=== PATIENT | female | born 1985 | race Two or more races ===

== ENCOUNTER 2016-11-10 13:09 | Emergency (ER) | payer OTHER ==
[2016-11-10 13:15] VITALS: BP 122/72; PULSE 97; TEMP 98.9; BMI 31.1
--- NOTE | 2016-11-10 14:20 | PDOC ---
History of Present Illness - General Chief Complaint: Cold Symptoms Stated Complaint: CHEST PAIN, COLD SYMPTONS Time Seen by Provider: 11/10/16 13:51 History Source: Patient Exam Limitations: No Limitations - History of Present Illness Initial Comments: CHIEF COMPLAINT: 31 y/o afebrile female with no significant PMH c/o flu like symptoms. HISTORY OF PRESENT ILLNESS: The patient states 2 nights ago she began having fever and chills, along with dry cough, runny nose and body aches. She denies ear ache, sore throat, n/v/d. She has been taking tylenol for fever and mucinex for cough and runny nose. Her significant other started with similar symptoms 2 days before her. She did not have the flu shot this year. Vital signs on arrival are within normal limits. REVIEW OF SYSTEMS: GENERAL/CONSTITUTIONAL: +fever/chills. No weakness. No weight change. +body aches HEAD, EYES, EARS, NOSE AND THROAT: No change in vision. No ear pain or discharge. No sore throat. +runny nose CARDIOVASCULAR: No chest pain or shortness of breath. RESPIRATORY: +dry cough. No wheezing, or hemoptysis. GASTROINTESTINAL: No nausea, vomiting, diarrhea. GENITOURINARY: No dysuria, frequency, or change in urination. MUSCULOSKELETAL: No joint or muscle swelling or pain. No neck or back pain. SKIN: No rash or easy bruising. NEUROLOGIC: No headache, vertigo, loss of consciousness, or loss of sensation. PHYSICAL EXAM: GENERAL: The patient is awake, alert, and fully oriented, in no acute distress. she is non toxic but ill appearing. HEAD: Normal with no signs of trauma. ENT: Pupils equal, round and reactive to light, extraocular movements intact, sclera anicteric, conjunctiva clear. Neck supple. LUNGS: Clear to auscultation bilaterally. Normal excursion. No respiratory distress or use of accessory muscles. CV: RRR, S1/S2, no MRG. Cap refill < 2 sec. ABDOMEN: Soft, non-distended, non-tender even to deep palpation, no hepatomegaly or splenomegaly, no masses. EXTREMITIES: Normal range of motion, no edema. NEUROLOGICAL: Normal speech, normal gait. CN II-XII grossly intact. PSYCH: Normal mood, normal affect. SKIN: Warm, dry, normal turgor, no rashes or lesions noted. Past History - Past Medical History Allergies/Adverse Reactions: Allergies Allergy/AdvReac Type Severity Reaction Status Date / Time No Known Allergies Allergy Verified 11/10/16 13:11 Home Medications: Ambulatory Orders Oseltamivir Phosphate [Tamiflu -] 75 mg PO BID #10 capsule 11/10/16 Other medical history: denies - Surgical History Abdominal Surgery: Yes - Immunization History Immunization Up to Date: Yes (no flu) - Psycho/Social/Smoking Cessation Hx Anxiety: No Suicidal Ideation: No Smoking History: Never smoked Have you smoked in the past 12 months: No Information on smoking cessation initiated: No Hx Alcohol Use: No Drug/Substance Use Hx: No Substance Use Type: None *Physical Exam - Vital Signs Last Vital Signs Temp Pulse Resp BP Pulse Ox 98.9 F 97 H 20 122/72 96 11/10/16 13:12 11/10/16 13:12 11/10/16 13:12 11/10/16 13:12 11/10/16 13:12 Medical Decision Making - Medical Decision Making A/P: 31 y/o female with flu. Plan is as follows: 1. hcg 2. Influenza hcg - negative Influenza A - positive The patient was given PO motrin in the ER Will discharge with rx for tamiflu. Suggeseted she take 650mg of tylenol every 4 hours for fever and 600mg of motrin every 6 hours for body aches. Instructed her to drink lots of fluids and get plenty of rest. Suggested she return to the ER with any worsening or concerning symptoms. The patient verbalizes understanding of all instructions, has no further questions and is awaiting discharge. *DC/Admit/Observation/Transfer Diagnosis at time of Disposition: Influenza A - Discharge Dispostion Disposition: HOME Condition at time of disposition: Good - Prescriptions Prescriptions: Oseltamivir Phosphate [Tamiflu -] 75 mg PO BID #10 capsule - Patient Instructions Printed Discharge Instructions: DI for Influenza -- Adult Additional Instructions: Discharge Instructions: -Take 650mg of Tylenol every 4 hours for fever -Take 600mg of Motrin every 6 hours for body aches -Take Tamiflu as prescribed -Drink lots of fluids and get plenty of rest -Return to the ER with any worsening or concerning symptoms - Post Discharge Activity Work/School Note: Back to Work
[2016-11-10 15:22] LABS: URINE APPEARANCE SLCLOUDY; URINE BILIRUBIN NEGATIVE (NEGATIVE); URINE COLOR YELLOW; URINE GLUCOSE (UA) NEGATIVE (NEGATIVE); URINE KETONE NEGATIVE (NEGATIVE); URINE LEUK ESTERASE NEGATIVE (NEGATIVE); URINE NITRITE NEGATIVE (NEGATIVE); URINE PROTEIN NEGATIVE (NEGATIVE); URINE UROBILINOGEN NEGATIVE E.U./dl (0.2-1.0)
[2016-11-10] MEDS ORDERED: IBUPROFEN 600 MG TABLET (FP) PO ONE (15:23)
[2016-11-10 15:27] LABS: URINE BLOOD 1+ (NEGATIVE)
[2016-11-10 15:29] LABS: URINE BACTERIA FEW /hpf (NONE SEEN); URINE MUCUS RARE; URINE RBC 13 /hpf (0-3); URINE WBC 1 /hpf (3-5)
--- NOTE | 2016-11-16 11:53 | EKG ---
Test Reason : Blood Pressure : / mmHG Vent. Rate : 099 BPM Atrial Rate : 099 BPM P-R Int : 134 ms QRS Dur : 072 ms QT Int : 344 ms P-R-T Axes : 045 047 032 degrees QTc Int : 441 ms NORMAL SINUS RHYTHM POSSIBLE LEFT ATRIAL ENLARGEMENT BORDERLINE ECG NO PREVIOUS ECGS AVAILABLE Confirmed by ANASTASIA ELIZONDO, MARIA ELENA ([id number]) on 11/16/2016 11:53:16 AM Referred By: Confirmed By:MARIA ELENA OCONNOR MD
== END 2016-11-10 15:35 | disposition home or self-care (01) ==
LOC: JERFT 13:09
DX: J09.X2 Influenza due to identified novel influenza A virus with other respiratory manifestations (principal)
CPT/HCPCS: 81003; 81015; 84703; 87086; 87186; 87804; 93005; 93010; 99281-25

== ENCOUNTER 2016-12-10 11:53 | Emergency (ER) | payer OTHER ==
[2016-12-10 12:20] VITALS: TEMP 98; BMI 30.2
[2016-12-10 13:25] LABS: URINE APPEARANCE CLEAR; URINE BILIRUBIN NEGATIVE (NEGATIVE); URINE BLOOD NEGATIVE (NEGATIVE); URINE COLOR LTYELLOW; URINE GLUCOSE (UA) NEGATIVE (NEGATIVE); URINE KETONE NEGATIVE (NEGATIVE); URINE LEUK ESTERASE NEGATIVE (NEGATIVE); URINE NITRITE NEGATIVE (NEGATIVE); URINE PROTEIN NEGATIVE (NEGATIVE); URINE UROBILINOGEN NEGATIVE E.U./dl (0.2-1.0)
--- NOTE | 2016-12-10 13:28 | PDOC ---
History of Present Illness - General Chief Complaint: Vaginal Bleeding Stated Complaint: , BLEEDING (WKS UNKNOWN) Time Seen by Provider: 12/10/16 12:38 - History of Present Illness Initial Comments: 12/10/16 12:57 CHIEF COMPLAINT: pelvic discomfort, vag bleed, positive HISTORY OF PRESENT ILLNESS: 31 yo Fwith no PMH presents to ED with vaginal bleeding x 2 days and pelvic discomfort x 1 week. Patient states she had a positive test 2 days ago, LMP was 10/14. Patient also c/o nausea and two episodes of vomiting two days ago. Patient denies severe vaginal bleeding, states "it's just very little, I just want to make sure everything is ok." Patient denies, fever, chills, diarrhea, changes in urine or defecation. No recent travel or sick contacts. PAST MEDICAL HISTORY: Denies past medical history FAMILY HISTORY: Denies SOCIAL HISTORY: Denies tobacco, alcohol, illicit drug use. SURGICAL HISTORY: Denies ALLERGIES: No known drug allergies REVIEW OF SYSTEMS General/Constitutional: Denies fever or chills. Denies weakness. HEENT: Denies change in vision. Denies ear pain or discharge. Denies sore throat. Cardiovascular: Denies chest pain or shortness of breath. Respiratory: Denies cough, wheezing, or hemoptysis. Gastrointestinal: 2 episodes of vomiting 2 days ago. Denies diarrhea or constipation. Denies rectal bleeding. Genitourinary: Left suprapubic pain, vaginal bleeding. Denies dysuria, frequency, or change in urination. Musculoskeletal: Denies joint or muscle swelling or pain. Denies neck or back pain. Skin and breasts: Denies rash or easy bruising. Neurologic: Denies headache, vertigo, loss of consciousness, or loss of sensation. PHYSICAL EXAM General Appearance: Well-appearing, appropriately dressed. No apparent distress , no intoxication. HEENT: EOMI, PERRLA,. No conjunctival pallor. No photophobia, scleral icterus. Neck: Supple. Trachea midline. No tenderness, rigidity. Respiratory/Chest: Lungs CTAB. Cardiovascular: RRR. S1, S2. Vascular Pulses: Dorsalis-Pedis (R): 2+, Dorsalis-Pedis (L): 2+ Gastrointestinal/Abdominal: Normal bowel sounds. Abdomen soft, non-distended. No tenderness or rebound tenderness. No organomegaly, pulsatile mass, guarding , hernia, hepatomegaly, splenomegaly. Pelvic: External genitalia normal without lesions. Vaginal vault is clear without blood or discharge. Cervix is long and closed. No cervical motion tenderness. Uterus is nontender and normal in size. Mild left adnexal tenderness. Musculoskeletal/Extremities: Normal inspection. FROM of all extremities, normal capillary refill. Pelvis Stable. No CVA tenderness. No tenderness to extremities, pedal edema, swelling, erythema or deformity. Integumentary: Appropriate color, dry, warm. No cyanosis, erythema, jaundice or rash Neurologic: purchase analyst II-XII intact. Fully oriented, alert. Appropriate mood/affect. Motor strength 5/5. No appreciable EOM palsy, facial droop or sensory deficit. 12/10/16 13:32 Past History - Past Medical History Allergies/Adverse Reactions: Allergies Allergy/AdvReac Type Severity Reaction Status Date / Time No Known Allergies Allergy Verified 12/10/16 12:15 Home Medications: Ambulatory Orders NK [No Known Home Medication] 12/10/16 Other medical history: denies - Surgical History Abdominal Surgery: Yes - Reproductive History Is Patient Now?: Yes (#): 2 Para: 1 - Immunization History Immunization Up to Date: Yes (no flu) - Psycho/Social/Smoking Cessation Hx Anxiety: No Suicidal Ideation: No Smoking History: Never smoked Have you smoked in the past 12 months: No Hx Alcohol Use: No Drug/Substance Use Hx: No Substance Use Type: None *Physical Exam - Vital Signs Last Vital Signs Temp Pulse Resp BP Pulse Ox 98.0 F 75 16 123/71 99 12/10/16 12:16 12/10/16 12:16 12/10/16 12:16 12/10/16 12:16 12/10/16 12:16 ED Treatment Course - RADIOLOGY Radiology Studies Ordered: Category Date Time Status TRANSVAGINAL US PREG [US] Stat Ultrasound 12/10/16 12:55 Ordered Medical Decision Making - Medical Decision Making 12/10/16 13:34 31 yo F with no PMH presents to ED with minimal vaginal bleeding x 2 days and 1 week of pelvic discomfort. -UA, UCx -beta hCG, T&S -TV U/S 12/10/16 16:35 Ultrasound results show confirmed IUP with EGA of 5 weeks and 2 days. Ovaries unremarkable beta hCG 7k+ appropriate for EGA. Patient is Rh+, Rhogam not indicated. Advised patient to follow up with OBGYN next week and of signs and symptoms for return to ER. Patient verbalized understanding and agrees to plan. 12/10/16 18:22 *DC/Admit/Observation/Transfer Diagnosis at time of Disposition: Threatened in first trimester - Discharge Dispostion Disposition: HOME Condition at time of disposition: Stable Admit: No - Referrals Referrals: Gautam Hedrick [Primary Care Provider] - Jorge Rand MD [Staff Physician] - - Patient Instructions Printed Discharge Instructions: DI for Threatened Additional Instructions: Please follow up with OBGYN next week. If you experience severe vaginal bleeding (more than one soaked pad per hour), persistent vomiting, severe abdominal pain, or any new or worsening symptoms, please return to the ER.
--- NOTE | 2016-12-10 14:35 | PDOC ---
*Physical Exam - Vital Signs Last Vital Signs Temp Pulse Resp BP Pulse Ox 98.0 F 75 16 123/71 99 12/10/16 12:16 12/10/16 12:16 12/10/16 12:16 12/10/16 12:16 12/10/16 12:16 - Physical Exam Comments: 12/10/16 14:35 The patient was examined by SHANIKA Conde under my direct supervision. I personally evaluated the patient. I concur with the above findings and the plan of care. ED Treatment Course - ADDITIONAL ORDERS Additional order review: Laboratory Results 12/10/16 12/10/16 13:00 13:00 Beta HCG, Quant 7280.3 Urine Color Ltyellow Urine Appearance Clear Urine pH 5.0 Ur Specific [place] 1.023 Urine Protein Negative Urine Glucose (UA) Negative Urine Ketones Negative Urine Blood Negative Urine Nitrite Negative Urine Bilirubin Negative Urine Urobilinogen Negative Ur Leukocyte Esterase Negative *DC/Admit/Observation/Transfer Diagnosis at time of Disposition: Threatened in first trimester - Discharge Dispostion Disposition: HOME Condition at time of disposition: Stable - Referrals Referrals: Jorge Rand MD [Staff Physician] - Gautam Hedrick [Primary Care Provider] - - Patient Instructions Printed Discharge Instructions: DI for Threatened Additional Instructions: Please follow up with OBGYN next week. If you experience severe vaginal bleeding (more than one soaked pad per hour), persistent vomiting, severe abdominal pain, or any new or worsening symptoms, please return to the ER.
[2016-12-10 17:28] VITALS: BP 118/64; PULSE 69
--- NOTE | 2016-12-12 11:28 | PDOC ---
Patient Follow-up (Call Back) - Post ED Follow - Up Condition at time of discharge: Stable Disposition at time of original discharge: HOME Reason for Call Back: Abnwl. Microbiology (+ecoli on ucx, oliver-sensitive including to macrobid. Pt is and not on abx. Called and unable to l/m as number busy on multiple attempts)
== END 2016-12-10 17:29 | disposition home or self-care (01) ==
LOC: JER 11:53
DX: O20.0 Threatened abortion (principal); Z3A.01 Less than 8 weeks gestation of pregnancy
CPT/HCPCS: 36415; 76817-TC; 81003; 84702; 86850; 86900; 86901; 87086; 87186; 99283-25

== ENCOUNTER 2017-07-27 14:17 | Inpatient (IN) | payer OTHER ==
[2017-07-27] MEDS ORDERED: CITRIC ACID/SODIUM CITRATE 30 ML UNIT-DOSE CUP PO ONE ×2 (15:15→16:57)
[2017-07-27] MEDS ORDERED: ELECTROLYTE-148 SOLN 500 ML IV ONE (15:15)
[2017-07-27 15:23] VITALS: BMI 36.6
[2017-07-27] MEDS ORDERED: ELECTROLYTE-148 SOLN 1,000 ML IV SCH (15:45)
[2017-07-27] MEDS ORDERED: IBUPROFEN 800 MG/8 ML IJ IVPB PRN (16:04)
[2017-07-27] MEDS ORDERED: ONDANSETRON 4 MG/2 ML VIAL IVPUSH PRN (16:05)
[2017-07-27] MEDS ORDERED: oxyCODONE HCL 5 MG TABLET PO PRN (16:59)
[2017-07-27] MEDS ORDERED: METHYLERGONOVINE MALEATE 0.2 MG/1 ML AMP IM PRN (16:59)
[2017-07-27] MEDS ORDERED: diphenhydrAMINE HCL 25 MG CAPSULE (FP) PO PRN (16:59)
[2017-07-27] MEDS ORDERED: WITCH HAZEL 50% (TUCKS) 40 PAD/JAR PAD TP PRN (16:59)
[2017-07-27] MEDS ORDERED: BENZOCAINE 28 GM HEMORRHOIDAL OINTMENT PR PRN (16:59)
[2017-07-27] MEDS ORDERED: BENZOCAINE 20% 57 GM BOTTLE TP PRN (16:59)
[2017-07-27] MEDS ORDERED: DEXTROSE 5%-LACTATED RINGERS 1,000 ML IV SCH (17:00)
[2017-07-27] MEDS ORDERED: OXYTOCIN 20 UNITS in 0.9% NS 1,000 ML IV SCH (17:00)
--- NOTE | 2017-07-27 17:07 | HP ---
Past Medical History - Primary Care Physician PCP:: Jorge Rand - Admission Chief Complaint: 39 weeks, previous c/s request of repeat c/s History of Present Illness: 32 yo f edc by date 07/28/17 with 1 previous c/s request of repeat c/s, risks discussed , ulternatives and discussed , declined aware risks of infection, bleeding, injury ,bleeding, post op complications, dvt, risks with future discussed, History Source: Patient Limitations to Obtaining History: No Limitations - Past Medical History ...: 3 ...Para: 1 ...Term: 1 ...: 0 ...Spon : 0 ...Induced : 1 ...Multiple Gestation: 0 ...LMP: 10/21/16 ... Weeks Gestation by Dates: 39.6 ...EDC by Dates: 07/28/17 ...EDC by Sono: 08/03/17 - Past Surgical History Past Surgical History: Yes: Hx Myomectomy: No Hx Transabdominal Cerclage: No - Smoking History Smoking history: Never smoked Have you smoked in the past 12 months: No - Alcohol/Substance Use Hx Alcohol Use: No - Social History Usual Living Arrangement: Yes: With Spouse History of Recent Travel: Yes Home Medications - Allergies Allergies/Adverse Reactions: Allergies Allergy/AdvReac Type Severity Reaction Status Date / Time No Known Allergies Allergy Verified 12/10/16 12:15 - Home Medications Home Medications: Ambulatory Orders NK [No Known Home Medication] 12/10/16 Review of Systems - Review of Systems Constitutional: reports: No Symptoms Eyes: reports: No Symptoms HENT: reports: No Symptoms Neck: reports: No Symptoms Cardiovascular: reports: No Symptoms Respiratory: reports: No Symptoms Gastrointestinal: reports: No Symptoms Genitourinary: reports: No Symptoms Breasts: reports: No Symptoms Reported Musculoskeletal: reports: No Symptoms Integumentary: reports: No Symptoms Neurological: reports: No Symptoms Endocrine: reports: No Symptoms Hematology/Lymphatic: reports: No Symptoms Psychiatric: reports: No Symptoms Physical Exam - Maternity Vital Signs: Vital Signs Temperature 97.8 F 07/27/17 14:17 Pulse Rate 86 07/27/17 14:17 Respiratory Rate 20 07/27/17 14:17 Blood Pressure 116/65 07/27/17 14:17 O2 Sat by Pulse Oximetry (%) Constitutional: Yes: Well Nourished, No Distress, Calm Eyes: Yes: WNL, Conjunctiva Clear, EOM Intact HENT: Yes: WNL, Atraumatic, Normocephalic Neck: Yes: WNL, Supple, Trachea Midline Cardiovascular: Yes: WNL, Regular Rate and Rhythm Breast(s): Yes: WNL - Abdominal Exam/OB Fundal Height: 40 Number of Fetuses: Single Presentation: Vertex Contractions: No Intensity: Unaware Monitor Mode: External Heart Rate Location: [facility] Category: I Accelerations: Uniform Decelerations: None - Vaginal Exam/OB Vaginal Bleediing: No Speculum Exam: No Dilatation (cm): closed Effacement (%): 0 Amniotic Membrane Status: Intact Presentation: Vertex/Position Station: -3 - Physical Exam Musculoskeletal: Yes: WNL Extremities: Yes: WNL Edema: Yes Edema: LLE: Trace, RLE: Trace Deep Tendon Reflex Grade: Normal +2 Psychiatric: Yes: WNL Hemorrhage Risk Assessment - Risk Factors Medium Risk Factors: Yes: Prior , uterine surgery,or multiple laparotomies Risk Score: 1 Risk Level: Medium Risk Problem List - Problems (1) with 39 completed weeks gestation Code(s): Z3A.39 - 39 WEEKS GESTATION OF (2) Previous section complicating , antepartum condition or complication Code(s): O34.219 - MATERNAL CARE FOR UNSP TYPE SCAR FROM PREVIOUS DEL Assessment/Plan repeat c/s rba discussed
[2017-07-27] MEDS ORDERED: CEFAZOLIN 1 GM/D5W 50 ML IVPB SCH (18:00)
[2017-07-27] MEDS: IBUPROFEN 800 MG/8 ML IJ IVPB PRN (18:05)
[2017-07-27] MEDS: CEFAZOLIN 1 GM in DEXTROSE 5%-WATER - 50 ML IVPB SCH (22:15)
--- NOTE | 2017-07-28 04:45 | PN ---
Progress Note (short form) - Note Progress Note: pod 1 s/p repeat c/s doing well, Last Vital Signs Temp Pulse Resp BP Pulse Ox 98.0 F 88 20 106/64 100 07/28/17 02:00 07/28/17 02:00 07/28/17 04:00 07/28/17 02:00 07/27/17 17:50 abdomen soft, no distension, no cva incision dry no excess vaginal bleeding folet clear , adequate out put plan ambualte, cbc. advance diet Problem List - Problems (1) with 39 completed weeks gestation Code(s): Z3A.39 - 39 WEEKS GESTATION OF (2) Previous section complicating , antepartum condition or complication Code(s): O34.219 - MATERNAL CARE FOR UNSP TYPE SCAR FROM PREVIOUS DEL
[2017-07-28] MEDS: IBUPROFEN 800 MG/8 ML IJ IVPB PRN (04:46)
[2017-07-28] MEDS: CEFAZOLIN 1 GM in DEXTROSE 5%-WATER - 50 ML IVPB SCH (06:28)
--- NOTE | 2017-07-28 07:22 | OP ---
DATE OF OPERATION: 07/27/2017 PREOPERATIVE DIAGNOSIS: , 39 weeks. Previous section. Request of repeat section. POSTOPERATIVE DIAGNOSIS: , 39 weeks. Previous section. Request of repeat section. PROCEDURE PERFORMED: Repeat low-segment transverse section. SURGEON: Davida Rand MD SLATE CUTTER OPERATOR: RIAN Puri ANESTHESIA: Spinal. ANESTHESIOLOGIST: Zafar Gunderson M.D. ESTIMATED BLOOD LOSS: 500 mL. DESCRIPTION OF PROCEDURE: The patient was taken to the operating room and had adequate spinal anesthesia. Abdomen and perineum were prepped and draped. A Pfannenstiel abdominal skin incision was made. The abdominal wall was cut layer by layer, until the peritoneum was exposed and incised. Upon entering the abdominal cavity, there were multiple omental and peritoneal adhesions. Also, the large bowel was adherent to the lateral pelvic side wall. These adhesions were meticulously lysed with Metzenbaum scissors. Hemostasis was established. The bowels were packed away. Then the lower uterine segment was identified and uterovesical fold of peritoneum established. The bladder was pushed down. A low transverse uterine incision was made. The amniotic sac was entered. Clear fluid. Head delivered. Nasopharynx was suctioned, and live baby was delivered. The placenta was delivered manually. The uterine cavity was cleaned of all remaining tissue. The uterine incision was closed in 2 layers, the 1st layer with 0 Biosyn continuous suture and the 2nd layer with 0 Biosyn imbricating the 1st layer. The bladder flap was closed with 0 Vicryl continuous suture. Both tubes and ovaries were checked and were normal. No active bleeding was seen. All the lap, sponge and instrument counts were correct. Then the peritoneum was closed with 0 Biosyn continuous suture. The muscles were brought together with interrupted suture of 0 Biosyn. The fascia was closed with 0 Biosyn continuous suture, the subcutaneous fat with interrupted suture of 0 Vicryl, and the skin was closed with millicent. The patient tolerated the procedure well, and left the OR in good condition. DAVIDA RAND M.D. [id number]
[2017-07-28 07:52] LABS: BASOPHIL 1.3 % (0-2.0); EOSINOPHIL 0.5 % (0-4.5); MCH 24.3 pg (25.7-33.7); MCHC 32.7 g/dl (32.0-36.0); MEAN CELL VOLUME 74.2 fl (80-96); MEAN PLT VOLUME 7.9 fl (7.5-11.1); NEUTROPHILS 79.1 % (42.8-82.8); PLATELET COUNT 305 K/MM3 (134-434); RDW 16.5 % (11.6-15.6); WHITE BLOOD COUNT 15.3 K/mm3 (4.0-10.0)
--- NOTE | 2017-07-28 08:09 | PN ---
Progress Note (short form) - Note Progress Note: Anesthesia Pain Pt seen and examined S:alert and oriented comfortable O: Vital Signs Temperature 98.8 F 07/28/17 06:00 Pulse Rate 71 07/28/17 06:00 Respiratory Rate 20 07/28/17 06:00 Blood Pressure 105/56 07/28/17 06:00 O2 Sat by Pulse Oximetry (%) 100 07/27/17 17:50 CBC, BMP 07/28/17 07:46 A/P: s/p c section doing well post op continue current care Robert Pastor MD
[2017-07-28] MEDS: SIMETHICONE 80 MG TAB.CHEW (FP) PO PRN ×3 (09:53→22:43)
[2017-07-28] MEDS: ACETAMINOPHEN 325 MG TABLET (FP) PO PRN ×3 (09:53→22:53)
[2017-07-28] MEDS: ENOXAPARIN NA (PORCINE) 40 MG/0.4 ML DISP.SYRIN SQ SCH (09:54)
[2017-07-28] MEDS: IBUPROFEN 600 MG TABLET (FP) PO PRN ×2 (09:54→17:20)
[2017-07-28] MEDS ORDERED: FLU VACC QS2017-18 36MOS UP/PF 60 MCG/0.5 ML SYRINGE IM ONE (10:00)
[2017-07-28] MEDS ORDERED: DIPHTH,PERTUSS(ACELL),TET 0.5 ML DISP.SYRIN IM ONE (10:00)
[2017-07-28] MEDS: oxyCODONE HCL 5 MG TABLET PO PRN (15:24)
[2017-07-28] MEDS ORDERED: BISACODYL 10 MG SUPP.RECT RC PRN (16:59)
[2017-07-29] MEDS: SIMETHICONE 80 MG TAB.CHEW (FP) PO PRN ×2 (05:48→21:39)
[2017-07-29] MEDS: ACETAMINOPHEN 325 MG TABLET (FP) PO PRN ×2 (05:49→14:52)
[2017-07-29] MEDS: oxyCODONE HCL 5 MG TABLET PO PRN ×2 (05:49→21:39)
[2017-07-29] MEDS: ENOXAPARIN NA (PORCINE) 40 MG/0.4 ML DISP.SYRIN SQ SCH (10:14)
--- NOTE | 2017-07-29 14:35 | PN ---
Post Progress Note - Subjective Subjective: 32 yo P2 s/p Elective repeat c/s ambulating, voiding, + flatus Post Day: 2 Type of Delivery: Repeat C/S Vital Signs: Vital Signs Temperature 98.4 F 07/29/17 10:00 Pulse Rate 75 07/29/17 10:00 Respiratory Rate 20 07/29/17 10:00 Blood Pressure 107/63 07/29/17 10:00 O2 Sat by Pulse Oximetry (%) 100 07/27/17 17:50 Breast Exam: Yes: Soft Uterus: Yes: Fundus Firm, Fundus @ umbilicus Incision: Yes: [place] intact Abdomen/GI: Yes: Abdomen soft, Abdominal Distention, Passing flatus, Tolerating PO Lochia: Yes: Rubra Lochia, amount: Small Extremities: Yes: Calves non-tender Activity: Ambulating - Labs Labs: CBC WBC 15.3 K/mm3 (4.0-10.0) H 07/28/17 07:46 RBC 4.30 M/mm3 (3.60-5.2) 07/28/17 07:46 Hgb 10.4 GM/dL (10.7-15.3) L 07/28/17 07:46 Hct 31.9 % (32.4-45.2) L 07/28/17 07:46 MCV 74.2 fl (80-96) L 07/28/17 07:46 MCH 24.3 pg (25.7-33.7) L 07/28/17 07:46 MCHC 32.7 g/dl (32.0-36.0) 07/28/17 07:46 RDW 16.5 % (11.6-15.6) H 07/28/17 07:46 Plt Count 305 K/MM3 (134-434) 07/28/17 07:46 MPV 7.9 fl (7.5-11.1) 07/28/17 07:46 Neutrophils % 79.1 % (42.8-82.8) 07/28/17 07:46 Lymphocytes % 13.7 % (8-40) D 07/28/17 07:46 Monocytes % 5.4 % (3.8-10.2) 07/28/17 07:46 Eosinophils % 0.5 % (0-4.5) 07/28/17 07:46 Basophils % 1.3 % (0-2.0) 07/28/17 07:46 Assessment/Plan 32 yo P2 s/p repeat c/s 1. Continue routine postoperative care. 2. ID - afebrile, will continue to monitor vital signs. 3. Cardiovascular - No acute issues 4. Pulmonary - Encourage incentive spirometer 5. Hematology - Hemoglobin / Hematocrit stable 6. Urinary urine output adequate overnight 7. Gastroinestinal mild ileus, encorage ambulation and Dulcolax suppository 8. Rh positive, no need for RhoGam
[2017-07-29] MEDS: IBUPROFEN 600 MG TABLET (FP) PO PRN ×2 (14:52→21:39)
[2017-07-29] MEDS ORDERED: SENNOSIDES/DOCUSATE COMBO (SENNA PLUS) TABLET (UD) PO PRN (22:00)
[2017-07-30 07:16] LABS: BASOPHIL 0.6 % (0-2.0); MCH 24.4 pg (25.7-33.7); MCHC 32.5 g/dl (32.0-36.0); MEAN CELL VOLUME 75.2 fl (80-96); NEUTROPHILS 70.7 % (42.8-82.8); PLATELET COUNT 350 K/MM3 (134-434); RDW 16.5 % (11.6-15.6); WHITE BLOOD COUNT 10.3 K/mm3 (4.0-10.0)
--- NOTE | 2017-07-30 08:14 | PN ---
Post Progress Note - Subjective Subjective: 32 yo P2 s/p Repeat c/s she feels well, +BM, tolarating regular diet, voiding, ambulating Post Day: 3 Type of Delivery: Repeat C/S Vital Signs: Vital Signs Temperature 98.5 F 07/29/17 20:33 Pulse Rate 70 07/29/17 20:33 Respiratory Rate 20 07/29/17 20:33 Blood Pressure 119/71 07/29/17 20:33 O2 Sat by Pulse Oximetry (%) 100 07/27/17 17:50 Breast Exam: Yes: Soft Uterus: Yes: Fundus Firm, Non-tender Incision: Yes: [place] intact Abdomen/GI: Yes: Abdomen soft, Passing flatus Lochia: Yes: Rubra Lochia, amount: Small Extremities: Yes: Calves non-tender - Labs Labs: CBC WBC 10.3 K/mm3 (4.0-10.0) H D 07/30/17 06:25 RBC 4.20 M/mm3 (3.60-5.2) 07/30/17 06:25 Hgb 10.3 GM/dL (10.7-15.3) L 07/30/17 06:25 Hct 31.6 % (32.4-45.2) L 07/30/17 06:25 MCV 75.2 fl (80-96) L 07/30/17 06:25 MCH 24.4 pg (25.7-33.7) L 07/30/17 06:25 MCHC 32.5 g/dl (32.0-36.0) 07/30/17 06:25 RDW 16.5 % (11.6-15.6) H 07/30/17 06:25 Plt Count 350 K/MM3 (134-434) 07/30/17 06:25 MPV 8.0 fl (7.5-11.1) 07/30/17 06:25 Neutrophils % 70.7 % (42.8-82.8) 07/30/17 06:25 Lymphocytes % 19.8 % (8-40) D 07/30/17 06:25 Monocytes % 6.9 % (3.8-10.2) 07/30/17 06:25 Eosinophils % 2.0 % (0-4.5) D 07/30/17 06:25 Basophils % 0.6 % (0-2.0) 07/30/17 06:25 Assessment/Plan 32 yo P2 s/p repeat c/s 1. ID - afebrile,.. 2. Cardiovascular - No acute issues 3. Pulmonary - Encourage incentive spirometer 4. Hematology - Hemoglobin / Hematocrit stable 4. Urinary voiding 5. Gastroinestinal resolved illeus, +BM 6. Rh positive, no need for RhoGam 7. D/c home, NPV for 6 weeks, RTO in 1 week
[2017-07-30] MEDS: SIMETHICONE 80 MG TAB.CHEW (FP) PO PRN (08:48)
[2017-07-30] MEDS: IBUPROFEN 600 MG TABLET (FP) PO PRN (08:48)
[2017-07-30] MEDS: ACETAMINOPHEN 325 MG TABLET (FP) PO PRN (08:49)
[2017-07-30] MEDS: ENOXAPARIN NA (PORCINE) 40 MG/0.4 ML DISP.SYRIN SQ SCH ×2 (08:50→09:08)
--- NOTE | 2017-07-30 12:33 | DS ---
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 Vital Signs: Vital Signs Temperature 98.5 F 07/29/17 20:33 Pulse Rate 70 07/29/17 20:33 Respiratory Rate 20 07/29/17 20:33 Blood Pressure 119/71 07/29/17 20:33 O2 Sat by Pulse Oximetry (%) 100 07/27/17 17:50 Constitutional: Yes: Well Nourished Eyes: Yes: WNL Neck: Yes: WNL, Supple Cardiovascular: Yes: Regular Rate and Rhythm Respiratory: Yes: CTA Bilaterally Gastrointestinal: Yes: Normal Bowel Sounds, Soft, Other ...Rectal Exam: No: WNL Pelvis: Yes: WNL External Genitalia: Yes: Normal ....Post : Yes: Uterus firm, Uterus non-tender Breast(s): Yes: WNL Musculoskeletal: Yes: WNL Extremities: Yes: WNL Wound/Incision: Yes: Clean/Dry, Well Approximated Neurological: Yes: WNL ...Motor Strength: WNL Psychiatric: Yes: WNL Labs: CBC, BMP 07/30/17 06:25 Delivery - Delivery Type of Anesthesia: Spinal Episiotomy/Laceration: None EBL (cc): 500 Delivery, Single - Stages of Labor Date of Delivery: 07/27/17 Time of Delivery: 16:30 Time Placenta Delivered: 16:32 - Condition of Video Control Engineer/Paper Roll Machine Operator Present: Yes Name: Phan Lyle Gender: Female Weight: 7 lb 1 oz Position: Right, OT Total Hours ROM (Hrs/Mins): 4min - 1 Minute Total Score: 9 5 Minutes Total Score: 9 - Feeding Plan Initial Plan: Exclusive throughout hospitalization Discharge Summary Reason For Visit: SCHEDULED SECTION Current Active Problems with 39 completed weeks gestation (Acute) Previous section complicating , antepartum condition or complication (Acute) Condition: Good - Instructions Diet, Activity, Other Instructions: Physical activity Resume your normal everyday activity as tolerated no heavy lifting or exercise until seen by your surgeon. You may walk unlimited shyann of and climb stairs. You may resume driving the car when you feel safe and comfortable behind the wheel. No sexual activity as instructed. Wound care If you have a bandage, leave it on, and keep dry for 48-72 hours. After that time discard the outer bandage. If they are tapes on the skin under the out of bandage leave them in place. They will peel off in the next 7 to 10 days. Do Not Peel them off. You may shower the day after surgery. If there are tapes present on the skin, you may shower over them. Diet There are no dietary restrictions. Eat healthy, high-fiber foods. Drink 6 to 8 glasses of liquid each day. This will assist in keeping your bowels are regular. Pain management You may take Tylenol or acetaminophen or Ibuprofen (for example, Motrin, Advil etc.) from my pain prescription medication is ordered should be taken as prescribed for moderate to severe pain. Call MD for any of the following: Severe pain not relieved by medication Fever of 101 or higher Excessive bleeding or drainage on dressing Inability to urinate Referrals: Jorge Rand MD [Staff Physician] - Disposition: HOME - Home Medications Comprehensive Discharge Medication List: Ambulatory Orders NK [No Known Home Medication] 12/10/16
[2017-07-30 13:38] VITALS: BP 126/64; PULSE 78; TEMP 98.3
--- NOTE | 2017-07-31 11:06 | PATH ---
Surgical Pathology Report Patient Name: ESAU OLVERA [facility]. Rec. 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 Specimen(s) Received PLACENTA Clinical History 39 weeks gestation, scheduled repeat History of positive PPD Final Diagnosis PLACENTA, DELIVERY: THIRD TRIMESTER PLACENTA WITH 3 VESSEL UMBILICAL CORD AND CIRCUMMARGINATE INSERTION OF MEMBRANES. Electronically Signed Kevin Urbano M.D. Gross Description The specimen is received fresh labeled placenta and is a 483 gram, 22 x 15 x 2.4 cm. placenta with attached membranes and umbilical cord. The attached membranes are glistening and translucent and insert in a circummarginate matter across one quarter of the placental disc, up to 1 cm from the nearest placental margin. The umbilical cord measures 38 cm. in length and averages 1.2 cm. in diameter. The cord inserts eccentrically, 3.5 cm. to the nearest margin. No true knots or strictures are identified. Cut surface of the umbilical cord reveals 3 vessels. The surface is hay-blue with minimal fibrin deposition and appropriate caliber vessels. The maternal surface is lobulated and appears complete with no adherent blood clots or areas of thinning. Sectioning reveals red-brown, spongy parenchyma. No lesions are identified. Job Cost Estimator sections are submitted in three cassettes as follows: 1- membrane rolls and umbilical cord; 2-3- full thickness sections of placenta. [facility]/07/28/2017 [facility]/07/28/2017
== END 2017-07-30 15:30 | disposition home or self-care (01) | DRG 540 ==
LOC: JLDR 14:17 → J3N 20:50 → J3W 07-29 17:17
PROVIDERS: ADMIT Obstetrics & Gynecology; ATTEND Obstetrics & Gynecology
PROC: 10D00Z1 Extraction of Products of Conception, Low, Open Approach (ICD-10-PCS; principal; 2017-07-27)
DX: O34.211 Maternal care for low transverse scar from previous cesarean delivery (principal); N85.8 Other specified noninflammatory disorders of uterus; Z3A.39 39 weeks gestation of pregnancy; Z37.0 Single live birth
CPT/HCPCS: 36415; 71020-TC; 85025; 88307-TC; 90686; 90715; G0008

== ENCOUNTER 2019-07-17 11:21 | Emergency (ER) | payer OTHER ==
[2019-07-17 11:31] VITALS: BP 119/70; PULSE 83; TEMP 98.3; BMI 30.2
--- NOTE | 2019-07-17 12:27 | PDOC ---
History of Present Illness - General Chief Complaint: Pain Stated Complaint: RT HAND PAIN Time Seen by Provider: 07/17/19 11:41 - History of Present Illness Initial Comments: 07/17/19 12:22 34 y/o F w/o CM currently breast feeding, presents for evaluation of atraumatic onset of R wrist pain x4 days. No systemic symptoms. Past History - Past Medical History Allergies/Adverse Reactions: Allergies Allergy/AdvReac Type Severity Reaction Status Date / Time No Known Allergies Allergy Verified 07/17/19 11:31 Home Medications: Ambulatory Orders NK [No Known Home Medication] 07/17/19 Asthma: No Cancer: No Cardiac Disorders: No COPD: No Diabetes: No HTN: No Seizures: No Thyroid Disease: No - Surgical History Abdominal Surgery: Yes - Reproductive History (#): 2 Para: 1 - Immunization History Immunization Up to Date: Yes (no flu) - Suicide/Smoking/Psychosocial Hx Smoking History: Never smoked Have you smoked in the past 12 months: No Information on smoking cessation initiated: No Hx Alcohol Use: No Drug/Substance Use Hx: No Substance Use Type: None Hx Substance Use Treatment: No Review of Systems - Review of Systems Constitutional: No: Fever Musculoskeletal: Yes: Joint Pain *Physical Exam - Vital Signs Last Vital Signs Temp Pulse Resp BP Pulse Ox 98.3 F 83 19 119/70 100 07/17/19 11:29 07/17/19 11:29 07/17/19 11:29 07/17/19 11:29 07/17/19 11:29 - Physical Exam Comments: 07/17/19 12:23 R wrist skin color and temperature are normal. Pt resists ROM in all planes, there is no swelling, There is tenderness about the DRUJ and ABD and Extensor pollicus. + Mayte Test. No gross sensory or motor deficits NVID. Medical Decision Making - Medical Decision Making 07/17/19 12:24 Tylenol for pain, pt breast feeding. Recommended thumb spica at night and f/u with hand surgery *DC/Admit/Observation/Transfer Diagnosis at time of Disposition: Radial styloid tenosynovitis [de quervain] - Discharge Dispostion Disposition: HOME Condition at time of disposition: Stable Decision to Admit order: No - Referrals Referrals: Mikki Trejo MD [Primary Care Provider] - Royce Lo MD [Staff Physician] - - Patient Instructions Additional Instructions: Please purchase a THUMB SPICA splint and sleep in it. Tylenol for pain. Follow up with Dr Lo from hand surgery in 1-2 days without fail. Return to the emergency room should symptoms worsen - Post Discharge Activity
== END 2019-07-17 12:31 | disposition home or self-care (01) ==
LOC: JERFT 11:21
DX: M65.4 Radial styloid tenosynovitis [de Quervain] (principal)
CPT/HCPCS: 99281-25

== ENCOUNTER 2022-12-03 23:13 | Emergency (ER) | payer OTHER ==
[2022-12-03 23:18] VITALS: BP 129/73; PULSE 81; RESP 18; TEMP 97.8; BMI 33.6
[2022-12-04] LABS: BASO % 0.2 % (0-2.0); HEMATOCRIT 38.9 % (32.4-45.2); LYMPH % 26.9 % (8-40); MCHC 33.5 g/dl (32.0-36.0); MEAN CELL VOLUME 80.8 fl (80-96); MEAN PLT VOLUME 7.8 fl (7.5-11.1); MONO % 6.1 % (3.8-10.2); NEUT % 64.8 % (42.8-82.8); PLATELET COUNT 373 10^3/uL (134-434); RBC 4.81 M/mm3 (3.60-5.2); RDW 14.4 % (11.6-15.6)
[2022-12-04 00:11] LABS: CALCIUM 8.9 mg/dL (8.5-10.1)
[2022-12-04 00:12] LABS: ALBUMIN 3.6 g/dl (3.4-5.0); BLOOD UREA NITROGEN 23.1 mg/dL (7-18); MAGNESIUM 1.8 mg/dL (1.8-2.4)
[2022-12-04 00:16] LABS: BILIRUBIN,TOTAL 0.3 mg/dL (0.2-1); TOT PROT 7.4 g/dl (6.4-8.2)
[2022-12-04 01:11] LABS: URINE APPEARANCE CLEAR; URINE BILIRUBIN NEGATIVE (NEGATIVE); URINE COLOR YELLOW; URINE GLUCOSE (UA) NEGATIVE (NEGATIVE); URINE KETONE TRACE (NEGATIVE); URINE LEUK ESTERASE NEGATIVE (NEGATIVE); URINE NITRITE NEGATIVE (NEGATIVE); URINE PROTEIN TRACE (NEGATIVE)
== END 2022-12-04 02:03 | disposition home or self-care (01) ==
LOC: JER 23:13
DX: Z56.3 Stressful work schedule (principal)
CPT/HCPCS: 0241U-QW; 36415; 71045-TC-FY; 80053; 81003; 83735; 84484; 84703; 85025; 87086; 87186; 93005; 93010; 99285-25